=== PATIENT | male | born 1970 | race Caucasian/White ===

== ENCOUNTER 2017-09-08 21:05 | Emergency (ER) | payer MEDICAID, SELFPAY ==
[2017-09-08 21:06] VITALS: BP 148/100; PULSE 111; RESP 16; TEMP 36.2; O2SAT 96; BMI 43.8
[2017-09-08] MEDS: Loperamide 2 MG Capsule 4 MG PO (22:08)
[2017-09-08] MEDS: 0.9% Normal Saline 1,000 ML 1000 ML IV (22:09)
[2017-09-08] MEDS: Ondansetron 4 MG/2 ML Vial IV (22:09)
[2017-09-08 22:10] LABS: Anion Gap 8 (5-15); BUN 11 mg/dL (7-18); BUN/Creat Ratio 9.7 RATIO (10-20); Calcium,Total 8.8 mg/dL (8.5-10.1); Chloride 104 mmol/L (98-107); Creatinine, Serum 1.13 mg/dL (0.70-1.30); EST Glomerular Filtration Rate 74 mL/min (>60); Est Glom Filt Rate - Afr Amer 90 mL/min (>60); Estimated Creatinine Clearance 101.35 ml/min; Glucose 128 mg/dL (74-106); Sodium Level 139 mmol/L (136-145)
--- NOTE | 2017-09-08 22:30 | ED.VISSUMM ---
- ER Visit Summary Date of Service: 09/08/17 Chief Complaint: Nausea and diarrhea History of Present Illness: The patient is a 46 M who has been ill since yesterday. He had severe watery diarrhea yesterday. He states like he felt he was going every 10 minutes. This is actually improved today. He is still having diarrhea but less severe. Today he also developed nausea and chills and sweats. He states he generally did not feel well. Therefore he presented here for evaluation. He has actually had no vomiting. He denies any abdominal pain. He has had some mild congestion and minimal cough. No chest pain or shortness of breath. No fevers. Physical Examination: Heart rate 111 vitals otherwise unremarkable Moist mucous membranes Heart regular rhythm tachycardia Lungs are clear Abdomen soft nontender nondistended Alert Test Results: BMP unremarkable. Emergency Department Course and Treatment: Patient was treated with IV fluids and given Zofran for nausea and Imodium for diarrhea. On reevaluation does report symptomatic improvement and states he feels pretty good. I do believe this is likely related to a viral syndrome. He was instructed on supportive care. He understands to return for new or worsening symptoms and was instructed on specific signs and symptoms to monitor for. He will follow-up with his primary care physician as needed. Patient discharged. Treatment Plan: [] Disposition: Discharge Impression: Diarrhea Viral syndrome This note was generated with [employer] dictation software. It may contain incorrect words, spelling, and punctuation that were not noted in review of the chart prior to signing ED Disposition - Plan for ED Patient: Chief Complaint: Nausea/Vomiting/Diarrhea Referrals: Alka Hull NP-C [Primary Care Provider] -
--- NOTE | 2017-09-08 22:32 | ED.DEP ---
ED Disposition - Plan for ED Patient: Chief Complaint: Nausea/Vomiting/Diarrhea Instructions: ED Gastroenteritis Viral Referrals: Alka Hull, FINANCE PROFESSOR-C [Primary Care Provider] -
--- NOTE | 2017-09-08 22:33 | DCINST.ED_ITS ---
ED Disposition - Plan for ED Patient: Chief Complaint: Nausea/Vomiting/Diarrhea Instructions: ED Gastroenteritis Viral Referrals: Alka Hull, OPTIC FIBRE DRAWER-C [Primary Care Provider] -
[2017-09-08 22:40] VITALS: BP 134/88
== END 2017-09-08 22:44 | disposition home or self-care (01) ==
LOC: ED 22:04
PROVIDERS: Emergency Provider Emergency Medicine; Family Provider Nurse Practitioner Family; PCP Nurse Practitioner Family
DX: B34.9 Viral infection, unspecified (principal); R19.7 Diarrhea, unspecified; E66.9 Obesity, unspecified; K21.9 Gastro-esophageal reflux disease without esophagitis; I10 Essential (primary) hypertension; Z72.0 Tobacco use; Z79.899 Other long term (current) drug therapy
CPT/HCPCS: 80048; 96361; 96374; 99284; J7030; A4216; J2405

== ENCOUNTER 2017-09-28 12:56 | Emergency (ER) | payer MEDICAID, SELFPAY ==
[2017-09-28 12:56] VITALS: BP 157/79; PULSE 95; RESP 20; TEMP 36.9; O2SAT 96; BMI 43.0
[2017-09-28] MEDS: DiphenhydrAMINE 50 MG/ML Syringe 25 MG IV (14:19)
[2017-09-28] MEDS: proCHLORPERazine 10 MG/2 ML Vial IV (14:19)
--- NOTE | 2017-09-28 14:26 | ED.DCSUM_ITS ---
- ER Visit Summary Date of Service: 09/28/17 Chief Complaint: Headache History of Present Illness: The patient is a 47 M presenting with headache gradual onset since yesterday. He states he tried Tylenol at home with minimal relief. He denies any trauma. He complains of right-sided headache associated with photophobia. Denies nausea or vomiting. Denies fever. Denies neck pain. He states he has a history of previous similar headaches. Physical Examination: Vitals are stable. Patient is afebrile. Alert no acute distress. HEENT exam is unremarkable. Neck is supple. No meningismus Lungs are clear and equal bilaterally. Heart is regular rate and rhythm. Abdomen is soft nontender nondistended. Extremities are unremarkable. Skin is warm and dry. No focal neurologic deficit. Remainder of exam is unremarkable. Emergency Department Course and Treatment: Patient was given Compazine, Benadryl with improvement. He is resting comfortably in the emergency department. Advised to follow-up with primary care physician. Advised return to ED for worsening complaints. Disposition: Discharge home Impression: Headache This note was generated with [employer] dictation software. It may contain incorrect words, spelling, and punctuation that were not noted in review of the chart prior to signing ED Disposition - Plan for ED Patient: Chief Complaint: Headache Referrals: Alka Hull NP-C [Primary Care Provider] -
--- NOTE | 2017-09-28 14:51 | ED.DEP ---
ED Disposition - Plan for ED Patient: Chief Complaint: Headache Instructions: ED Cephalgia Unspecified Referrals: Alka Hull, NORI-C [Primary Care Provider] -
[2017-09-28 15:12] VITALS: BP 148/89; PULSE 79; RESP 18; O2SAT 96
== END 2017-09-28 15:17 | disposition home or self-care (01) ==
LOC: ED 13:46
PROVIDERS: Emergency Provider Emergency Medicine; Family Provider Nurse Practitioner Family; PCP Nurse Practitioner Family
DX: R51 Headache (principal); K21.9 Gastro-esophageal reflux disease without esophagitis; I10 Essential (primary) hypertension; Z79.899 Other long term (current) drug therapy
CPT/HCPCS: 96374; 96375; 99283; A4216

== ENCOUNTER 2018-02-22 10:50 | Emergency (ER) | payer MEDICAID, SELFPAY ==
[2018-02-22 10:52] VITALS: BP 166/100; PULSE 90; RESP 17; TEMP 37.1; O2SAT 96; BMI 43.3
--- NOTE | 2018-02-22 11:13 | ED.DCSUM_ITS ---
- ER Visit Summary Date of Service: 02/22/18 Chief Complaint: [Cough and congestion] History of Present Illness: The patient is a 47 M [presents the emergency department complaint cough congestion ?3 days. Patient states that he is coughing up some yellow to brown's sputum. Patient denies fever. He denies chills or sweats. Patient also has a sore throat. Patient states that today he woke up in both eyes were matted and he had drainage. Patient denies sick contacts.] Physical Examination: [HEENT-PERRLA, EOMI. Cranial nerves II through XII grossly intact. TMs clear. Mucous membranes moist. No adenopathy. Cardiovascular-regular rate and rhythm without murmur or ectopy Lungs-good aeration bilaterally with some faint expiratory wheezes noted bilaterally. No accessory muscle use or retractions. Abdomen-normoactive bowel sounds, soft, nontender, no rebound or rigidity, no peritoneal signs. Extremities-intact ?4, normal range of motion, normal pulses, atraumatic] Test Results: [None indicated] Emergency Department Course and Treatment: [Patient was dispensed an albuterol MDI and was started on doxycycline and prednisone. Patient also dispensed gentamicin ophthalmic drops] Treatment Plan: [Doxycycline and prednisone as well as albuterol for wheezing.] Disposition: [Discharged home in stable condition]. Patient advised to [facility] with [facility] within next 3-5 days. Patient to return if increasing shortness of breath or condition should worsen in any way. Impression: [Asthmatic bronchitis Conjunctivitis] This note was generated with [employer] dictation software. It may contain incorrect words, spelling, and punctuation that were not noted in review of the chart prior to signing ED Disposition - Plan for ED Patient: Chief Complaint: Cold Sx Referrals: Alka Hull NP-C [Primary Care Provider] -
--- NOTE | 2018-02-22 11:15 | DCINST.ED_ITS ---
ED Disposition - Plan for ED Patient: Chief Complaint: Cold Sx Instructions: ED Bronchitis Asthmatic Prescriptions: Doxycycline Monohydrate 100 mg PO BID #20 cap Prednisone [Deltasone] 20 mg PO BID #6 tab Referrals: Alka Hull PHLEBOTOMY TECHNOLOGIST-C [Primary Care Provider] - 5-7 Days
[2018-02-22] MEDS: Gentamicin Sulfate 1 OPTH.BTL 2 DRP EACH EYE (11:22)
[2018-02-22] MEDS: predniSONE 20 MG Tablet 40 MG PO (11:23)
[2018-02-22] MEDS: Doxycycline 100 MG CAPSULE PO (11:23)
== END 2018-02-22 11:26 | disposition home or self-care (01) ==
PROVIDERS: Emergency Provider Emergency Medicine; Family Provider Nurse Practitioner Family; PCP Nurse Practitioner Family
DX: J45.909 Unspecified asthma, uncomplicated (principal); H10.9 Unspecified conjunctivitis; I10 Essential (primary) hypertension; K21.9 Gastro-esophageal reflux disease without esophagitis; Z79.899 Other long term (current) drug therapy
CPT/HCPCS: 99282

== ENCOUNTER 2018-04-14 17:16 | Emergency (ER) | payer MEDICAID, SELFPAY ==
[2018-04-14 17:17] VITALS: BP 168/99; PULSE 84; RESP 16; TEMP 36.6; O2SAT 96; BMI 43.0
--- NOTE | 2018-04-14 17:25 | RAD_ITS ---
STUDY: X-RAY CHEST REASON FOR EXAM: Male, 47 years old. Cough and congestion x3 days TECHNIQUE: PA and lateral views of the chest. COMPARISON: 10/08/2016 FINDINGS: Lungs are expanded, right lung is clear. Left lung shows perihilar opacification containing air bronchograms suggesting perihilar infiltrate. No demonstrated effusion. Normal size heart. Normal mediastinum and kennedy. Normal visualized pulmonary arteries. Normal visualized aortic arch and descending thoracic aorta. Normal visualized thoracic spine. Normal visualized ribs, clavicles, and shoulders. There is no demonstrated abnormality of the visualized soft tissue structures of the upper abdomen. RAD/Chest PA and Lateral IMPRESSION: Left perihilar infiltrate without effusion. Follow-up recommended to assure resolution Electronically Signed: Marco Chappell MD at 18:11 EDT , Service support ,
[2018-04-14 19:29] LABS: Absolute Lymphocyte Count 2.05 X10^3/ul (0.83-4.51); Absolute Neutrophil Count 5.2 X10^3/uL (2.0-7.7); Basophil# 0.03 X10^3/uL; Basophil% 0.4 % (0-1); Eosinophil# 0.25 X10^3/uL; Hematocrit 44.4 % (40-54); Hemoglobin 14.9 g/dl (13.0-16.5); Lymphocyte # 2.05 X10^3/ul (4.0); Lymphocyte % 24.6 % (19-41); Mean Corp Hgb Conc 33.6 g/gl (32-36); Mean Corpuscular Volume 86.4 fL (80-94); Monocyte# 0.75 X10^3/uL; Neutrophil # 5.23 X10^3/uL (2.7-7.7); Neutrophil % 62.8 % (47-70); Platelet Count 231 K/mm3 (150-450); RBC Distribution Width CV 12.9 % (11.6-14.6); RBC Distribution Width SD 40.9 fl (35.1-43.9); Red Blood Count 5.14 M/mm3 (4.6-6.2); White Blood Count 8.3 K/mm3 (4.4-11.0)
[2018-04-14 19:30] VITALS: BP 181/109; PULSE 79; RESP 18; O2SAT 97; O2SAT 98
[2018-04-14 19:31] LABS: POSITIVE COUNT NO; POSITIVE DIFFERENTIAL NO; POSITIVE MORPHOLOGY NO
[2018-04-14 19:49] LABS: Anion Gap 6 (5-15); BUN 11 mg/dL (7-18); BUN/Creat Ratio 12.9 RATIO (10-20); Calcium,Total 8.8 mg/dL (8.5-10.1); Chloride 106 mmol/L (98-107); Creatinine, Serum 0.86 mg/dL (0.70-1.30); EST Glomerular Filtration Rate 102 mL/min (>60); Est Glom Filt Rate - Afr Amer 124 mL/min (>60); Estimated Creatinine Clearance 131.77 ml/min; Glucose 95 mg/dL (74-106); Potassium 4.1 mmol/L (3.5-5.1); Sodium Level 142 mmol/L (136-145)
[2018-04-14 21:02] VITALS: PULSE 84; RESP 18; O2SAT 95
[2018-04-14 22:23] VITALS: O2SAT 97
--- NOTE | 2018-04-14 22:51 | ED.DEP ---
ED Disposition - Plan for ED Patient: Chief Complaint: Cough Instructions: ED Pneumonia Adult Prescriptions: Doxycycline Monohydrate 100 mg PO BID #14 capsule Referrals: Ana Mcrae [Primary Care Provider] -
[2018-04-14] MEDS: Doxycycline 100 MG CAPSULE PO (22:58)
[2018-04-14 22:59] VITALS: BP 158/68; PULSE 85; RESP 16; O2SAT 94
--- NOTE | 2018-04-14 22:59 | ED.VISSUMM ---
- ER Visit Summary Date of Service: 04/14/18 Chief Complaint: Cough, congestion History of Present Illness: The patient is a 47 M presents with cough, congestion. He states this has been ongoing for the past 3 days. The cough is nonproductive. He tried Mucinex at home with no improvement. He denies fever. He denies chest pain or shortness of breath. He is not a smoker. Physical Examination: Vitals are stable. Patient is afebrile. Alert no acute distress. HEENT exam is unremarkable. Neck is supple. Lungs are clear and equal bilaterally. Heart is regular rate and rhythm. Abdomen is soft nontender nondistended. Extremities are unremarkable. Skin is warm and dry. No focal neurologic deficit. Remainder of exam is unremarkable. Emergency Department Course and Treatment: CBC, chemistries unremarkable. Chest x-ray shows left perihilar infiltrate. He was given doxycycline p.o. and prescription. He remains hemodynamically stable. Pulse ox is 97% with ambulation. He will follow-up with his primary care physician. He is advised return to ED for new or worsening complaints. Disposition: Discharge home Impression: Community acquired pneumonia This note was generated with [employer] dictation software. It may contain incorrect words, spelling, and punctuation that were not noted in review of the chart prior to signing ED Disposition - Plan for ED Patient: Chief Complaint: Cough Instructions: ED Pneumonia Adult Prescriptions: Doxycycline Monohydrate 100 mg PO BID #14 capsule Referrals: [facility] Vreo,Ana Rodrigues [Primary Care Provider] -
--- NOTE | 2018-04-14 23:02 | ED.DCSUM_ITS ---
- ER Visit Summary Date of Service: 04/14/18 Chief Complaint: Cough, congestion History of Present Illness: The patient is a 47 M presents with cough, congestion. He states this has been ongoing for the past 3 days. The cough is nonproductive. He tried Mucinex at home with no improvement. He denies fever. He denies chest pain or shortness of breath. He is not a smoker. Physical Examination: Vitals are stable. Patient is afebrile. Alert no acute distress. HEENT exam is unremarkable. Neck is supple. Lungs are clear and equal bilaterally. Heart is regular rate and rhythm. Abdomen is soft nontender nondistended. Extremities are unremarkable. Skin is warm and dry. No focal neurologic deficit. Remainder of exam is unremarkable. Emergency Department Course and Treatment: CBC, chemistries unremarkable. Chest x-ray shows left perihilar infiltrate. He was given doxycycline p.o. and prescription. He remains hemodynamically stable. Pulse ox is 97% with ambulation. He will follow-up with his primary care physician. He is advised return to ED for new or worsening complaints. Disposition: Discharge home Impression: Community acquired pneumonia This note was generated with [employer] dictation software. It may contain incorrect words, spelling, and punctuation that were not noted in review of the chart prior to signing ED Disposition - Plan for ED Patient: Chief Complaint: Cough Instructions: ED Pneumonia Adult Prescriptions: Doxycycline Monohydrate 100 mg PO BID #14 capsule Referrals: [facility] Vero,Ana Rodrigues [Primary Care Provider] -
== END 2018-04-14 23:08 | disposition home or self-care (01) ==
LOC: ED 20:13
PROVIDERS: Emergency Provider Emergency Medicine
DX: J18.9 Pneumonia, unspecified organism (principal)
CPT/HCPCS: 71046; 80048; 85025; 99285; A4216

== ENCOUNTER → 2018-11-04 | Outpatient (CLI) | payer MEDICAID, SELFPAY ==
[2018-11-04 13:44] VITALS: BMI 43.9
--- NOTE | 2018-11-04 13:52 | RAD_ITS ---
STUDY: X-RAY - RIGHT KNEE REASON FOR EXAM: Chronic pain. TECHNIQUE: 4 view(s) of the knee. COMPARISON: Radiographs 04/16/2017. FINDINGS: Normal visualized distal femur. Normal visualized proximal tibia and fibula. Normal proximal tibiofibular articulation. Normal medial femorotibial compartment. Normal lateral femorotibial compartment. Normal patellofemoral articulation. The soft tissue structures are unremarkable. RAD/Knee 4 or More Views IMPRESSION: Normal x-ray examination of the right knee. Electronically Signed: Danial Hood MD at 13:38 EDT Tel , Service support ,
--- NOTE | 2018-11-04 13:52 | RAD_ITS ---
STUDY: X-RAY - LEFT KNEE REASON FOR EXAM: Chronic pain. TECHNIQUE: 4 view(s) of the knee. COMPARISON: None. FINDINGS: Normal visualized distal femur. Normal visualized proximal tibia and fibula. Normal proximal tibiofibular articulation. Normal medial femorotibial compartment. Normal lateral femorotibial compartment. Normal patellofemoral articulation. The soft tissue structures are unremarkable. RAD/Knee 4 or More Views IMPRESSION: Normal x-ray examination of the left knee. Electronically Signed: Danial Hood MD at 13:40 EDT Tel , Service support ,
== END | disposition home or self-care (01) ==
PROVIDERS: Referring Provider Orthopaedic Surgery; Visit Provider Orthopaedic Surgery
DX: M25.562 Pain in left knee (principal); M25.561 Pain in right knee
CPT/HCPCS: 73564

== ENCOUNTER 2018-12-20 21:20 | Emergency (ER) | payer MEDICAID, SELFPAY ==
[2018-11-04 13:44] VITALS: BMI 43.9
[2018-12-20 21:21] VITALS: BP 150/107; PULSE 90; RESP 18; TEMP 36.3; O2SAT 96; BMI 46.1
--- NOTE | 2018-12-20 21:38 | ED.VISSUMM ---
- ER Visit Summary Date of Service: 12/20/18 Chief Complaint: Left knee pain History of Present Illness: The patient is a [address] Keller and the [facility]. He reports that he has chronic left knee pain. He is in the process of getting fitted for a brace for this. States that yesterday he was walking around on uneven ground and tweaked his knee. He denied any fall. No MVA. States is a sharp pain is 10-10 at worst and 7-10 currently. Is worsened by walking and relieved by rest. He is also taken naproxen. Physical Examination: Vitals: Stable. Afebrile. General: Well-nourished and well-developed. Head: Normocephalic atraumatic. Neck: Supple, no lymphadenopathy. No JVD. Nontender. Cardiovascular: Regular rate and rhythm. No murmurs. Respiratory: No respiratory distress. Clear to auscultation bilaterally. Abdominal: Soft, nontender, nondistended, normal bowel sounds. No guarding, rebound, or peritoneal signs. Back: Nontender. Extremities: Left knee: Mild tenderness palpation to the proximal tibia. No pain or ligamentous instability with anterior/posterior drawer or medial/lateral stress. No overlying erythema or warmth to suggest a septic joint. No effusion. Skin: Normal color, no rash. Neurologic: Alert and oriented ?3. Cranial nerves II through XII are intact. Normal strength and sensation. Psych: Normal affect. Emergency Department Course and Treatment: I had a prolonged discussion with patient about treatment options. At this time he does not want to have therapeutic arthrocentesis performed. He also reports that he is recovering addict and does not want any opiate-based medications. His last naproxen was approximately 8 hours ago. He was given a dose of Tylenol. Treatment Plan: Patient refused crutches. Instructed use Tylenol and Aleve for pain. Follow-up Dr. Keller in 1 week if not improving. Return to the emergency department for any worsening symptoms. Disposition: To home in improved and stable condition. Impression: 1. Left knee pain, acute on chronic. This note was generated with [employer] software. It may contain incorrect words, spelling, and punctuation that were not noted in review of the chart prior to signing ED Disposition - Plan for ED Patient: Disposition: Home or Assisted Living Instructions: ED Knee Pain [facility] Referrals: [facility],Ana Rodrigues [Primary Care Provider] - Ellyn Keller DO [STAFF PHYSICIAN] - 1 Week if not improving
[2018-12-20] MEDS: Acetaminophen 325 MG Tablet 1000 MG PO (21:52)
[2018-12-20 21:53] VITALS: RESP 20
== END 2018-12-20 21:53 | disposition home or self-care (01) ==
LOC: ED 21:40
PROVIDERS: Emergency Provider Emergency Medicine
DX: M25.562 Pain in left knee (principal); G89.29 Other chronic pain; K21.9 Gastro-esophageal reflux disease without esophagitis; I10 Essential (primary) hypertension
CPT/HCPCS: 99283

== ENCOUNTER → 2019-09-14 14:03 | Outpatient (CLI) | payer MEDICAID, SELFPAY ==
--- NOTE | 2019-09-14 14:07 | US_ITS ---
STUDY: SCROTUM ULTRASOUND REASON FOR EXAM: Male, 49 years old. Testicular pain and swelling TECHNIQUE: Ultrasound evaluation of the scrotum was performed with color Doppler and static granados-scale imaging. COMPARISON: None. FINDINGS: RIGHT TESTICLE INTRATESTICULAR: There is a normal size of the right testicle. The right testicle measures 4.8 x 2.8 x 2.5 cm. There is a homogenous echotexture. There is normal arterial and normal venous vascularity. There is no demonstrated right testicular mass or cyst. EXTRATESTICULAR: The epididymis is normal in size. The epididymis head measures 1.1 x 1.1 cm. There is normal vascularity of the epididymis. There is no demonstrated epididymal cystic structure. There is no demonstrated hydrocele. There are prominent extratesticular veins consistent with a varicocele. There is no demonstrated extratesticular mass or cyst. LEFT TESTICLE INTRATESTICULAR: There is a normal size of the left testicle. The left testicle measures 4.2 x 2.9 x 2.4 cm. There is a homogenous echotexture. There is normal arterial and normal venous vascularity. There is a 0.4 x 0.4 cm cyst in the left testicle. The left testicle is otherwise within normal limits. EXTRATESTICULAR: The epididymis is normal in size. The epididymis head measures 1.2 x 1.0 cm. There is normal vascularity of the epididymis. There is no demonstrated epididymal cystic structure. There is a small hydrocele. There are prominent extratesticular veins consistent with a varicocele. There is no demonstrated extratesticular mass or cyst. US/Testicular with Arterial Flow IMPRESSION: 4 mm cyst in the left testicle. Otherwise, normal bilateral testicles with normal Doppler flow. Bilateral varicoceles. Small left hydrocele. Electronically Signed: Jono Beck, at 15:13 EST Tel , Service support ,
== END ==
PROVIDERS: Referring Provider Nurse Practitioner Family; Visit Provider Nurse Practitioner Family
DX: N50.82 Scrotal pain (principal)
CPT/HCPCS: 76870; 93976

== ENCOUNTER 2020-03-13 11:53 | Emergency (ER) | payer MEDICAID, SELFPAY ==
[2020-03-13 11:54] VITALS: BP 160/114; PULSE 83; RESP 16; TEMP 36.2; O2SAT 97; BMI 45.9
--- NOTE | 2020-03-13 12:19 | EKG12_ITS ---
Test Reason : CP Blood Pressure : / mmHG Vent. Rate : 080 BPM Atrial Rate : 080 BPM P-R Int : 154 ms QRS Dur : 084 ms QT Int : 380 ms P-R-T Axes : 014 -04 041 degrees QTc Int : 438 ms Normal sinus rhythm Normal ECG Confirmed by NADINE CHI ([id number]), fan mail editor LUPE BOATENG ([id number]) on 03/20/2020 1:17:30 PM Referred By: ASHA Confirmed By:NADINE CHI
[2020-03-13 12:43] LABS: Absolute Lymphocyte Count 2.07 X10^3/uL (0.83-4.51); Basophil# 0.06 X10^3/uL; Basophil% 0.7 % (0-1); Eosinophil# 0.28 X10^3/uL; Eosinophils% 3.5 % (0-5); Hematocrit 46.6 % (40-54); Hemoglobin 15.7 g/dL (13.0-16.5); Lymphocyte # 2.07 X10^3/ul (4.0); Lymphocyte % 25.6 % (19-41); Mean Corp Hgb Conc 33.7 g/dL (32-36); Mean Corpuscular Volume 86.1 fL (80-94); Mean Platelet Vol. 10.3 fl (6.2-12.0); Monocyte# 0.63 X10^3/uL; Monocyte% 7.8 % (0-10); NRBC Flagged by Analyzer 0 % (0-5); Neutrophil # 5.03 X10^3/uL (2.7-7.7); Neutrophil % 62.2 % (47-70); Platelet Count 284 K/mm3 (150-450); RBC Distribution Width CV 12.6 % (11.6-14.6); RBC Distribution Width SD 39.1 fl (35.1-43.9); Red Blood Count 5.41 M/mm3 (4.6-6.2); White Blood Count 8.1 K/mm3 (4.4-11.0)
--- NOTE | 2020-03-13 12:50 | RAD_ITS ---
STUDY: X-RAY CHEST REASON FOR EXAM: Male, 49 years old. CP with sneezing or deep breath TECHNIQUE: Single AP portable view of the chest. COMPARISON: None. FINDINGS: The lungs are clear and expanded. There is no demonstrated pleural abnormality. Normal size heart. Normal mediastinum and kennedy. Normal visualized pulmonary arteries. Normal visualized aortic arch and descending thoracic aorta. Normal visualized thoracic spine. Normal visualized ribs, clavicles, and shoulders. There is no demonstrated abnormality of the visualized soft tissue structures of the upper abdomen. RAD/Chest 1 View (Portable) IMPRESSION: Normal x-ray examination of the chest. Electronically Signed: Sara Wolf, at 13:22 EDT Tel , Service support ,
[2020-03-13 12:53] LABS: Anion Gap 2 (5-15); BUN 14 mg/dL (7-18); BUN/Creat Ratio 15.7 RATIO (10-20); Calcium,Total 9.3 mg/dL (8.5-10.1); Chloride 107 mmol/L (98-107); Creatinine, Serum 0.89 mg/dL (0.70-1.30); EST Glomerular Filtration Rate 96 mL/min (>60); Est Glom Filt Rate - Afr Amer 117 mL/min (>60); Estimated Creatinine Clearance 118.01 ml/min; Glucose 103 mg/dL (74-106); Potassium 3.9 mmol/L (3.5-5.1); Sodium Level 139 mmol/L (136-145)
[2020-03-13] MEDS: 0.9% Normal Saline 1,000 ML 150 ML IV (12:53)
[2020-03-13] MEDS: Aspirin 81 MG TAB.CHEW 324 MG PO (12:53)
[2020-03-13 13:14] LABS: D-Dimer Quantitative (DVT/PE) <= 0.27 FEU/ug/m (0.27-0.49)
[2020-03-13 13:19] VITALS: BP 151/112
--- NOTE | 2020-03-13 14:12 | ED.DCSUM_ITS ---
- ER Visit Summary Date of Service: 03/13/20 Chief Complaint: [Chest pain and high blood pressure] History of Present Illness: The patient is a 49 M [resents to the emergency department with symptoms for 2 days. Patient is noted a sharp stabbing pain in his left chest especially with yawning or sneezing or deep breath. Patient denies feeling short of breath. Has had no fever or cough. He was at his primary care physician's office and was referred to the ER given his complaints. Patient has not had any recent travel or surgery. Patient does have history of hypertension and was noted in the office today to have systolics in the 170s with diastolics in the low 100s. Patient is on blood pressure medication which he states that he has been compliant with and that today's blood pressure was higher than normal.] Physical Examination: [HEENT-PERRLA, EOMI. Cranial nerves II through XII grossly intact. TMs clear. Mucous membranes moist. No adenopathy. Cardiovascular-regular rate and rhythm without murmur or ectopy Lungs-clear to auscultation, chest wall stable without crepitus or subcu emphysema Abdomen-normoactive bowel sounds, soft, nontender, no rebound or rigidity, no peritoneal signs. Extremities-intact ?4, normal range of motion, normal pulses, atraumatic] Test Results: [EKG obtained on arrival shows sinus rhythm with a ventricular rate of 80 bpm with no acute ST segment changes. CBC with differential is normal. Chemistries unremarkable. Troponin was less than 0.015. D-dimer was less than 0.27. Chest x-ray showed nothing acute.] Emergency Department Course and Treatment: [Patient had an IV line established on arrival. Patient placed on lens matcher. Patient was given aspirin.] Treatment Plan: [Patient has atypical chest pain and I have low suspicion for cardiac etiology. Patient heart score is 2. Recommended anti-inflammatory for discomfort. Patient to follow-up with his primary care physician in 3 to 5 days. Patient advised to return if worsening pain, increasing shortness of breath, exertional dyspnea, or condition should worsen anyway.] Disposition: [Discharged home in stable condition] Impression: [Chest pain-atypical] This note was generated with [employer] software. It may contain incorrect words, spelling, and punctuation that were not noted in review of the chart prior to signing ED Disposition - Plan for ED Patient: Referrals: Raul Pham,Ana Rodrigues [Primary Care Provider] -
--- NOTE | 2020-03-13 14:15 | ED.DEP ---
ED Disposition - Plan for ED Patient: Instructions: ED Hypertension Established, ED Chest Pain Atypical Unkn Cause Referrals: Ana Mcrae [Primary Care Provider] - 3-5 Days
[2020-03-13 14:40] VITALS: BP 148/100; PULSE 78; RESP 16; O2SAT 98
== END 2020-03-13 14:42 | disposition home or self-care (01) ==
LOC: ED 12:42
PROVIDERS: Emergency Provider Emergency Medicine
DX: R07.9 Chest pain, unspecified (principal); I10 Essential (primary) hypertension
CPT/HCPCS: 71045; 80048; 84484; 85025; 85379; 93005; 96360; 96361; 99285; J7030; A4216

== ENCOUNTER 2020-04-04 19:10 | Emergency (ER) | payer MEDICAID, SELFPAY ==
[2020-04-04 19:11] VITALS: BP 183/99; PULSE 90; RESP 18; TEMP 36.1; O2SAT 97; BMI 45.1
--- NOTE | 2020-04-04 19:27 | CT_ITS ---
STUDY: CT BRAIN WITHOUT CONTRAST REASON FOR EXAM: Male, 49 years old. C/O HTN AND FLYNN RADIATION DOSAGE (If Supplied By Facility): CTDIvol = ( 44.99 ) mGy, DLP = ( 829.85 ) mGycm TECHNIQUE: Transaxial CT imaging of the brain was performed without administration of intravenous contrast material. Individualized dose optimization techniques were used for this CT. COMPARISON: No relevant priors. FINDINGS: Normal soft tissue structures. Normal calvarium. Normal size ventricles and extra-axial spaces for the patient''s age. Normal white matter tracts of the cerebral hemispheres. Normal basal ganglia and thalami. Normal brainstem. Normal cerebellum. There is no intracranial hemorrhage. There are no findings of an acute ischemic infarction. Normal visualized paranasal sinuses. Chronic nasal fractures. Remote healed fracture of the medial wall right orbit. CT/Brain/Head without Contrast IMPRESSION: 1. No acute findings. 2. Remote healed facial fractures. Electronically Signed: Ebony Watkins MD at 20:45 EDT Tel , Service support ,
--- NOTE | 2020-04-04 19:27 | EKG12_ITS ---
Test Reason : HTN Blood Pressure : / mmHG Vent. Rate : 086 BPM Atrial Rate : 086 BPM P-R Int : 154 ms QRS Dur : 080 ms QT Int : 348 ms P-R-T Axes : 021 003 044 degrees QTc Int : 416 ms Normal sinus rhythm Normal ECG Confirmed by JIMENA CALDERON, DENNY ([id number]), editor continuity and script NACHO WYATT ([id number]) on 04/09/2020 12:53:28 PM Referred By: PALOMA Confirmed By:DENNY HESS MD
--- NOTE | 2020-04-04 19:27 | ED.DCSUM_ITS ---
- ER Visit Summary Date of Service: 04/04/20 Chief Complaint: [High blood pressure] History of Present Illness: The patient is a 49 M [presents to the emergency department with elevated blood pressure over the last 2 weeks. Patient states that he had a headache this morning and felt fatigued. He checked his blood pressure around 4 PM and it was 168/105. Patient states that his primary care physician is currently working on managing his blood pressure and adjusting his medications. Currently he is on hydrochlorothiazide 25 mg daily as well as losartan 100 mg daily. Patient rates his headache currently is a 7 out of 10. He denies any photophobia. He has had no nausea or vomiting. He denies any chest pain or shortness of breath. Patient denies any abdominal pain. Patient denies any falls or head injuries.] Physical Examination: [HEENT-PERRLA, EOMI. Cranial nerves II through XII grossly intact. TMs clear. Mucous membranes moist. No adenopathy. Cardiovascular-regular rate and rhythm without murmur or ectopy Lungs-clear to auscultation, chest wall stable without crepitus or subcu emphysema Abdomen-normoactive bowel sounds, soft, nontender, no rebound or rigidity, no peritoneal signs. Extremities-intact ?4, normal range of motion, normal pulses, atraumatic] Test Results: [EKG obtained on arrival showed a sinus rhythm with a rate of 86 bpm with no acute segment changes. CBC with differential again of 8.8 chemistries unremarkable. Troponin less than 0.15. CT scan of the brain without contrast was unremarkable.] Emergency Department Course and Treatment: [Patient placed on groundwater monitoring technician on arrival.] Treatment Plan: [This point patient's blood pressure is 150s over 90s and I do not feel he needs any further acute intervention. He is advised to follow-up wi th his primary care physician to continue to monitor and treat his blood pressure. Patient advised to return if severe headache, chest pain, shortness of breath, or condition should worsen anyway. Patient will discontinue his co- Q10 supplements that he has been taking since these issues of started to see if it makes a difference in his blood pressure.] Disposition: [Discharged home in stable condition] Impression: [Hypertension-established] This note was generated with [employer] software. It may contain incorrect words, spelling, and punctuation that were not noted in review of the chart prior to signing ED Disposition - Plan for ED Patient: Referrals: [facility] [NON-STAFF] -
[2020-04-04 19:28] VITALS: BP 175/113; PULSE 78; RESP 18; O2SAT 96
[2020-04-04 20:00] LABS: Absolute Lymphocyte Count 2.09 X10^3/uL (0.83-4.51); Absolute Neutrophil Count 5.5 X10^3/uL (2.0-7.7); Basophil# 0.05 X10^3/uL; Basophil% 0.6 % (0-1); Eosinophils% 2.3 % (0-5); Hematocrit 44.8 % (40-54); Hemoglobin 15.2 g/dL (13.0-16.5); Lymphocyte # 2.09 X10^3/ul (4.0); Lymphocyte % 23.9 % (19-41); Mean Corp Hgb Conc 33.9 g/dL (32-36); Mean Corpuscular Hgb 29.1 pg (27.0-32.0); Mean Corpuscular Volume 85.8 fL (80-94); Mean Platelet Vol. 10.3 fl (6.2-12.0); Monocyte# 0.92 X10^3/uL; Monocyte% 10.5 % (0-10); NRBC Flagged by Analyzer 0 % (0-5); Neutrophil # 5.46 X10^3/uL (2.7-7.7); Neutrophil % 62.4 % (47-70); Platelet Count 267 K/mm3 (150-450); RBC Distribution Width CV 12.6 % (11.6-14.6); Red Blood Count 5.22 M/mm3 (4.6-6.2); White Blood Count 8.8 K/mm3 (4.4-11.0)
[2020-04-04 20:08] VITALS: BP 158/97; PULSE 85; RESP 16; O2SAT 97
[2020-04-04 20:21] LABS: Anion Gap 4 (5-15); BUN 11 mg/dL (7-18); BUN/Creat Ratio 11.7 RATIO (10-20); Calcium,Total 9.3 mg/dL (8.5-10.1); Chloride 107 mmol/L (98-107); Creatinine, Serum 0.94 mg/dL (0.70-1.30); EST Glomerular Filtration Rate 91 mL/min (>60); Est Glom Filt Rate - Afr Amer 110 mL/min (>60); Estimated Creatinine Clearance 111.74 ml/min; Glucose 104 mg/dL (74-106); Potassium 4.8 mmol/L (3.5-5.1); Sodium Level 142 mmol/L (136-145)
--- NOTE | 2020-04-04 20:29 | DCINST.ED_ITS ---
ED Disposition - Plan for ED Patient: Instructions: ED Hy[facility]
--- NOTE | 2020-04-04 20:29 | ED.DEP ---
ED Disposition - Plan for ED Patient: Instructions: ED Hypertension Established [facility] - [facility]-5 Days
[2020-04-04 20:31] VITALS: BP 158/97; PULSE 85; RESP 20; O2SAT 97
== END 2020-04-04 20:39 | disposition home or self-care (01) ==
LOC: ED 19:59
PROVIDERS: Emergency Provider Emergency Medicine; PCP Nurse Practitioner Family
DX: I10 Essential (primary) hypertension (principal)
CPT/HCPCS: 70450; 80048; 84484; 85025; 93005; 99284; A4216

== ENCOUNTER → 2020-04-17 09:31 | Outpatient (CLI) | payer MEDICAID, SELFPAY ==
[2020-04-04 19:11] VITALS: BMI 45.1
[2020-04-17 10:14] LABS: Absolute Neutrophil Count 4.3 X10^3/uL (2.0-7.7); Basophil# 0.05 X10^3/uL; Basophil% 0.7 % (0-1); Eosinophils% 2.8 % (0-5); Hematocrit 44.5 % (40-54); Hemoglobin 14.8 g/dL (13.0-16.5); Lymphocyte % 26.8 % (19-41); Mean Corp Hgb Conc 33.3 g/dL (32-36); Mean Corpuscular Hgb 28.9 pg (27.0-32.0); Mean Corpuscular Volume 86.9 fL (80-94); Mean Platelet Vol. 10.3 fl (6.2-12.0); Monocyte# 0.65 X10^3/uL; Monocyte% 9.2 % (0-10); NRBC Flagged by Analyzer 0 % (0-5); Neutrophil # 4.25 X10^3/uL (2.7-7.7); Neutrophil % 60.1 % (47-70); Platelet Count 270 K/mm3 (150-450); RBC Distribution Width CV 12.5 % (11.6-14.6); RBC Distribution Width SD 39.7 fl (35.1-43.9); Red Blood Count 5.12 M/mm3 (4.6-6.2); White Blood Count 7.1 K/mm3 (4.4-11.0)
[2020-04-17 10:40] LABS: Vitamin D,25 Hydroxy 27.9 ng/mL
[2020-04-17 10:42] LABS: ALB/GLOB Ratio 1.2 RATIO (0.9-2.4); AST(SGOT) 23 U/L (15-37); Alanine Aminotransfer ALT/SGPT 41 U/L (16-61); Albumin, Serum 4.1 g/dL (3.2-5.0); Alkaline Phosphatase 99 U/L (45-117); Anion Gap 3 (5-15); BUN 14 mg/dL (7-18); BUN/Creat Ratio 15.3 RATIO (10-20); Chloride 105 mmol/L (98-107); Cholesterol 155 mg/dL (200); Creatinine, Serum 0.92 mg/dL (0.70-1.30); EST Glomerular Filtration Rate 94 mL/min (>60); Est Glom Filt Rate - Afr Amer 113 mL/min (>60); Globulin 3.5 g/dL (2.2-4.2); Glucose 108 mg/dL (74-106); High Density Lipoprotein 52 mg/dL; Potassium 4.1 mmol/L (3.5-5.1); Protein, Total 7.6 g/dL (6.4-8.2); Sodium Level 139 mmol/L (136-145); Triglycerides 94 mg/dL; Very Low Density Lipoprotein 19 mg/dL (5-40)
[2020-04-17 11:47] LABS: Prothrombin Time (Protime)PT. 12.4 SECONDS (11.7-14.9)
[2020-04-17 11:48] LABS: Partial Thromboplast Time 30.6 Seconds (24.1-36.2)
== END ==
PROVIDERS: Nurse Practitioner Family; Specialist
DX: I10 Essential (primary) hypertension (principal); R07.9 Chest pain, unspecified
CPT/HCPCS: 36415; 80053; 80061; 82306; 85025; 85610; 85730

== ENCOUNTER 2020-04-25 07:42 | Day surgery (SDC) | payer MEDICAID, SELFPAY ==
[2020-04-17 10:00] VITALS: BMI 46.2
[2020-04-24 12:37] VITALS: BMI 46.2
--- NOTE | 2020-04-25 10:15 | CL.D_ITS ---
Patient Name: ALEX BRISCOE Study Date: 04/25/2020 Performing: Jemal De La Vega MD Ht: 74.01 inches 188 cm : 1970 Wt: 359.35 lbs 163 kg Age: 49 Gender: male BSA: 2.79 PROCEDURE(S) PERFORMED GS94-BXY/COR/LV CLINICAL PROFILE AND INDICATIONS Indications: Worsening Angina Heart Failure: None Stress/Imaging Stress/Image Study Performed: No CAD Presentations: Unstable angina. CONCLUSIONS No significant obstructive CAD. RCA appears to arise from the L coronary cusp. No significant or M R. Preserved EF RECOMMENDATIONS Consider CTA of the coronaries to see if the RCA has a course between the aorta and pulmonary artery DESCRIPTION OF PROCEDURE The patient arrived to the procedure lab. The risks and benefits of the procedure as well as a full d escription of our services here and current unavailability of surgical backup were fully explained to the patient and/or their significant other prior to the catheterization. The Timeout was completed, verifying the correct patient and procedure. The patient's procedural site was prepped and draped in the usual fashion. Local anesthetic was given subcutaneously to right radial region with Lidocaine 2% . Using a modified Seldinger technique, arterial access was obtained via the right radial artery, a 6 Fr sheath was inserted. Left Coronary Artery selective angiography was performed in multiple views u sing a 5 Fr. JL3.5 catheter. Left Ventriculography was performed in MARADIAGA projection using a 5 Fr. JR4. LV to AO pullback pressures were then recorded. Right Coronary Artery selective angiography was then performed in multiple views using a 5 Fr. 4.0 Valmora catheter.The arterial sheath was pulled and a TR Band was applied for hemostasis CORONARY ANGIOGRAPHY DOMINANCE: Right Dominant LEFT HEART ASSESSMENT Left Ventricular Ejection Fraction: by LV Gram 60 % Normal LV wall motion LEFT MAIN: No significant disease noted LEFT ANTERIOR DESCENDING ARTERY: No significant disease noted CIRCUMFLEX ARTERY: No significant disease noted RIGHT CORONARY ARTERY: No significant disease noted. RCA appears to arise from the L coronary cusp VALVE FINDINGS: No Aortic Valve Stenosis No Mitral Insufficiency COMPLICATIONS No Complications PROCEDURE MEDICATIONS Fentanyl 50 mcg IV Versed 1 mg IV Oxygen: 2 L/min via nasal cannula SUMMARY OF HEMODYNAMIC DATA Time AIR REST ECG 08:28:47 ECG 08:58:40 AO 135/109 (125) SA 09:19:08 LV 166/1, 15 09:23:48 LV 166/2, 13 09:23:55 LV 158/0, 13 09:24:35 LVp 160/6, 20 09:24:56 AOp 149/96 (120) 09:25:01 AO 152/99 (123) 09:25:08 Signed By Jemal De La Vega MD On 04/25/2020 10:14:06 AM Jemal De La Vega MD
== END 2020-04-25 11:40 | disposition home or self-care (01) ==
LOC: CLSP 07:43
PROVIDERS: Referring Provider Specialist; Visit Provider Specialist
DX: I20.0 Unstable angina (principal); I10 Essential (primary) hypertension; R06.00 Dyspnea, unspecified; R07.9 Chest pain, unspecified; Z79.899 Other long term (current) drug therapy; Z79.51 Long term (current) use of inhaled steroids; Z87.891 Personal history of nicotine dependence
CPT/HCPCS: 93458; 99152; 99153; J7040; Q9967; C1769; C1894

== ENCOUNTER → 2020-05-04 14:29 | Outpatient (CLI) | payer MEDICAID, SELFPAY ==
[2020-04-24 12:37] VITALS: BMI 46.2
--- NOTE | 2020-05-04 14:32 | CT_ITS ---
STUDY: CT CHEST WITHOUT CONTRAST REASON FOR EXAM: Male, 49 years old. R/O ANOMALOUS CORONARY ARTERY? PLEASE ONLY DO OVER READ OF CHEST STRUCTURES. CARPET MECHANIC TO READ CORONARY ARTERIES RADIATION DOSAGE (If Supplied By Facility): CTDIvol = ( 24.14 ) mGy, DLP = ( 14 ) mGycm TECHNIQUE: Transaxial imaging was performed without the administration of intravenous contrast material. Multiplanar coronal and sagittal images were reformatted. Individualized dose optimization techniques were used for this CT. COMPARISON: None. FINDINGS: 4 x 7 mm noncalcified nodule in the right lower lobe is evident on image 41 of series 3. There is also a 3 x 6 mm subpleural nodule in the lateral left lower lobe on image 31. Tiny 2 mm nodule in the anterior right middle lobe on image 25. 3 mm noncalcified nodule in the lateral left lower lobe on image 44 as well as a 3 x 4 mm noncalcified nodule in the lateral left lower lobe on image 46. There is no demonstrated pleural abnormality. The cardiac structures and coronary arteries evaluated/reported by electric wheelchair repairer. Normal mediastinum. Normal hilar regions. Normal unenhanced pulmonary arteries. Normal aorta arch and descending thoracic aorta. There are multi-level degenerative changes of the thoracic spine. There is no demonstrated abnormality of the visualized upper abdomen. IMPRESSION: Noncalcified nodules measuring up to 4 x 7 mm. Recommend follow-up chest CT in 3-6 months, according to FLEISCHNER Society guidelines. Electronically Signed: Anil Nunez MD (Brooks) at 15:42 EDT , Service support , STUDY: CT CHEST WITHOUT CONTRAST REASON FOR EXAM: Male, 49 years old. R/O ANOMALOUS CORONARY ARTERY? PLEASE ONLY DO OVER READ OF CHEST STRUCTURES. CARPET MECHANIC TO READ CORONARY ARTERIES RADIATION DOSAGE (If Supplied By Facility): CTDIvol = ( 24.14 ) mGy, DLP = ( 1482.08 ) mGycm TECHNIQUE: Transaxial imaging was performed without the administration of intravenous contrast material. Multiplanar coronal and sagittal images were reformatted. Individualized dose optimization techniques were used for this CT. COMPARISON: None. FINDINGS: 4 x 7 mm noncalcified nodule in the right lower lobe is evident on image 41 of series 3. There is also a 3 x 6 mm subpleural nodule in the lateral left lower lobe on image 31. Tiny 2 mm nodule in the anterior right middle lobe on image 25. 3 mm noncalcified nodule in the lateral left lower lobe on image 44 as well as a 3 x 4 mm noncalcified nodule in the lateral left lower lobe on image 46. There is no demonstrated pleural abnormality. The cardiac structures and coronary arteries evaluated/reported by electric wheelchair repairer. Normal mediastinum. Normal hilar regions. Normal unenhanced pulmonary arteries. Normal aorta arch and descending thoracic aorta. There are multi-level degenerative changes of the thoracic spine. There is no demonstrated abnormality of the visualized upper abdomen. CT/Limited Chest CT w/CCTA
[2020-05-04 14:39] VITALS: BP 164/93; PULSE 78; RESP 18; TEMP 36.8; O2SAT 98; BMI 43.9
[2020-05-04 14:59] VITALS: BP 164/93; PULSE 78
[2020-05-04] MEDS: Nitroglycerin SL (ED/IMG/CATH) 0.4 MG TABLET SUBLINGUAL (14:59)
[2020-05-04 15:05] VITALS: BP 148/107; PULSE 83; RESP 14; O2SAT 95
--- NOTE | 2020-05-22 17:40 | CCTA.WCONT ---
CCTA w/Cont Coronary Arteries Date of Study:: 05/04/20 chest pain High-resolution computed tomographic imaging of the chest was performed on 05/04/2020 with particular attention paid to the coronary arteries, images from the examination were analyzed for the presence of extensive coronary artery calcification using the coronary calcification software. The patient was also administered 100 cc of contrast agent gated images were attempted to be obtained. There appeared to be a problem with gating during the acquisition. 0.625 mm reconstruction images were obtained. LEFT MAIN CORONARY ARTERY: Normal left main coronary artery, this originates from the normal left coronary cusp [] LEFT ANTERIOR DESCENDING CORONARY ARTERY: No significant stenosis noted in the left anterior descending artery [] LEFT CIRCUMFLEX CORONARY ARTERY: Evidence of misregistration artifact noted in the left circumflex artery [] RIGHT CORONARY ARTERY: Dominant vessel with no significant stenosis noted CORONARY CALCIUM SCORE: 0 [CT angiogram demonstrating normal origin of the coronary arteries. No definitive obstructive lesions are noted though there is evidence of misregistration artifact as well as computer malfunction. This may diminish the sensitivity for detection of obstructive coronary disease.]
== END ==
PROVIDERS: Referring Provider Specialist; Visit Provider Specialist
DX: R06.00 Dyspnea, unspecified (principal); R07.9 Chest pain, unspecified; I10 Essential (primary) hypertension
CPT/HCPCS: 75571; 75574; 76380; Q9967

== ENCOUNTER → 2020-05-16 13:02 | Outpatient (CLI) | payer MEDICAID, SELFPAY ==
[2020-04-17 10:00] VITALS: BMI 46.2
[2020-05-04 14:39] VITALS: BMI 43.9
--- NOTE | 2020-05-16 13:03 | ECHOCS_ITS ---
Reason For Study: CHEST PAIN, LAZO Procedure This was a 2D Doppler, Color Flow transthoracic echocardiogram. The study was technically difficult. Exam performed in department. Left Ventricle Normal LV size. The estimated ejection fraction is 65 %. No evidence for diastolic dysfunction. No regional wall motion abnormalities noted. Right Ventricle Normal RV size. Normal systolic function. Atria Normal left atrium. Normal right atrium. No doppler evidence for ASD. Mitral Valve There is no mitral valve stenosis. No mitral valve insufficiency. Tricuspid Valve There is no tricuspid stenosis. Unable to estimate RV systolic pressure due to inadequate jet, pulmonary artery pressure probably normal. Aortic Valve Trisinus/trileaflet aortic valve. There is no aortic stenosis. No aortic valve insufficiency. Pulmonic Valve There is no pulmonic valvular stenosis. No pulmonic valve insufficiency. Great Vessels Normal aortic root. Pericardium/Pleural No pericardial effusion. Medication 22 gauge I.V. with prn adaptor inserted into left arm. Diluted definity 6ml given slow IV push to enhance endocardial definition. MMode/2D Measurements & Calculations LVIDd: 4.7 cm IVSd: 0.93 cm Ao root diam: 3.7 cm LVIDs: 3.2 cm LVPWd: 1.0 cm RVDd: 3.9 cm FS: 32.6 % LAV(MOD-bp): 36.3 ml LVAd ap4: 35.0 cm2 SV(MOD-sp4): 73.6 ml LAV(MOD-bp) Indexed: 13.0 ml/m2 EDV(MOD-sp4): 120.6 ml LAV(MOD-sp2): 43.7 ml EDV(sp4-el): 126.1 ml LAV(MOD-sp4): 29.1 ml LVAs ap4: 20.8 cm2 ESV(MOD-sp4): 46.9 ml ESV(sp4-el): 48.9 ml EF(MOD-sp4): 61.1 % EF(sp4-el): 61.2 % SV(sp4-el): 77.2 ml LA A4 area: 13.3 cm2 RA A4 area: 13.5 cm2 Time Measurements MV dec time: 0.36 sec Doppler Measurements & Calculations MV E max jh: 53.9 cm/sec Med Peak E' Jh: 12.6 cm/sec Ao V2 max: 159.8 cm/sec MV A max jh: 64.6 cm/sec E/E' med: 4.3 Ao max P.2 mmHg MV E/A: 0.83 LV V1 max: 132.4 cm/sec PA V2 max: 107.9 cm/sec LV V1 max P.0 mmHg Interpretation Summary The estimated ejection fraction is 65 %. No evidence for diastolic dysfunction. The study was technically difficult. Contrast injection was performed. Ordering Physician: Arden De La Vega Referring Physician: ISAÍAS REYNOLDS Performed By: Carley Acosta RDCS
== END ==
PROVIDERS: Referring Provider Specialist; Visit Provider Specialist
DX: R06.00 Dyspnea, unspecified (principal); R07.9 Chest pain, unspecified
CPT/HCPCS: 93306; Q9957; A4216; C8929

== ENCOUNTER → 2020-12-07 12:17 | Outpatient (CLI) | payer MEDICAID, SELFPAY ==
[2020-08-22 11:18] VITALS: BMI 45.5
[2020-12-07 11:31] LABS: Absolute Lymphocyte Count 1.46 X10^3/uL (0.83-4.51); Basophil# 0.05 X10^3/uL; Basophil% 0.7 % (0-1); Eosinophil# 0.13 X10^3/uL; Eosinophils% 1.9 % (0-5); Hematocrit 45.6 % (40-54); Hemoglobin 14.9 g/dL (13.0-16.5); Lymphocyte # 1.46 X10^3/ul (0.83-4.51); Lymphocyte % 21.9 % (19-41); Mean Corp Hgb Conc 32.7 g/dL (32-36); Mean Corpuscular Hgb 28.3 pg (27.0-32.0); Mean Corpuscular Volume 86.5 fL (80-94); Mean Platelet Vol. 9.5 fl (6.2-12.0); Monocyte# 1.06 X10^3/uL; Monocyte% 15.9 % (0-10); NRBC Flagged by Analyzer 0 % (0-5); Neutrophil # 3.96 X10^3/uL (2.7-7.7); Neutrophil % 59.5 % (47-70); Platelet Count 265 K/mm3 (150-450); RBC Distribution Width SD 41.1 fl (35.1-43.9); Red Blood Count 5.27 M/mm3 (4.6-6.2); White Blood Count 6.7 K/mm3 (4.4-11.0)
[2020-12-07 11:50] LABS: Hemoglobin A1c 5.8 % (3.8-5.6)
--- NOTE | 2020-12-07 12:18 | US_ITS ---
STUDY: SUPERFICIAL ULTRASOUND - SCALP. REASON FOR EXAM: Male, 50 years old. LUMP ON TOP OF HEAD TECHNIQUE: A superficial ultrasound was performed with real-time and static granados-scale imaging. COMPARISON: None. FINDINGS: The palpable abnormality corresponds to a 2.5 cm x 2.6 cm x 0.6 cm hypoechoic density deep to the scalp overlying the crown of the head. US/Head/Neck Soft Tissue IMPRESSION: The palpable abnormality corresponds with 2.5 cm x 2.6 cm x 0.6 cm hypodensity in the scalp overlying the cranium and deep to the skin. This most likely represents a lipoma Electronically Signed: Neal Larry MD at 14:13 EDT , Service support ,
--- NOTE | 2020-12-07 12:35 | CT_ITS ---
STUDY: CT CHEST WITH CONTRAST REASON FOR EXAM: Male, 50 years old. ABNORMAL FINDING OF LUNG FIELD. Lung nodules seen on prior CT cardiac calcium scoring exam. RADIATION DOSAGE (If Supplied By Facility): CTDIvol = ( 26.20 ) mGy, DLP = ( 1130.59 ) mGycm TECHNIQUE: Transaxial imaging was performed following intravenous administration of IV 100mL Isovue-370. Multiplanar coronal and sagittal images were reformatted. Individualized dose optimization techniques were used for this CT. COMPARISON: Comparison is made with prior examination 05/04/2020. FINDINGS: Stable 2 mm nodule in the anterior aspect of the right middle lobe as seen on image #53. Stable 4.9 mm x 6 mm noncalcified nodule in the lateral aspect of the right lower lobe as seen on axial image #68. Stable 3 mm x 4 mm noncalcified nodule in the peripheral aspect of the left lower lobe as seen on axial image #83. There is no demonstrated pleural abnormality. Normal heart and pericardium. There are multiple small lymph nodes within the mediastinum, which are normal in size and morphology most compatible with reactive lymph hyperplasia. Normal hilar regions. Normal enhanced pulmonary arteries. Normal aorta arch and descending thoracic aorta. Normal osseous structures. Multiple small gallstones. CT/Chest WITH Contrast IMPRESSION: Stable examination. A 12 month follow-up examination is recommended. Electronically Signed: Neal Larry MD at 13:22 EDT , Service support ,
[2020-12-07 12:40] LABS: AST(SGOT) 35 U/L (15-37); Alanine Aminotransfer ALT/SGPT 44 U/L (16-61); Albumin, Serum 3.9 g/dL (3.2-5.0); Alkaline Phosphatase 97 U/L (45-117); Anion Gap 5 (5-15); BUN 19 mg/dL (7-18); BUN/Creat Ratio 19.9 RATIO (10-20); Calcium,Total 9.3 mg/dL (8.5-10.1); Chloride 103 mmol/L (98-107); Cholesterol 168 mg/dL (200); Creatinine, Serum 0.96 mg/dL (0.70-1.30); EST Glomerular Filtration Rate 89 mL/min (>60); Est Glom Filt Rate - Afr Amer 108 mL/min (>60); Glucose 114 mg/dL (74-106); High Density Lipoprotein 54 mg/dL; Potassium 4.2 mmol/L (3.5-5.1); Protein, Total 7.9 g/dL (6.4-8.2); Sodium Level 140 mmol/L (136-145); Triglycerides 94 mg/dL; Very Low Density Lipoprotein 19 mg/dL (5-40)
== END ==
PROVIDERS: PCP Nurse Practitioner Adult Health; Referring Provider Nurse Practitioner Adult Health; Visit Provider Nurse Practitioner Adult Health
DX: D21.0 Benign neoplasm of connective and other soft tissue of head, face and neck (principal); R91.8 Other nonspecific abnormal finding of lung field; I10 Essential (primary) hypertension
CPT/HCPCS: 36415; 71260; 76536; 80053; 80061; 83036; 85025; Q9967; A4216

== ENCOUNTER → 2021-01-04 09:10 | Outpatient (CLI) | payer MEDICAID, SELFPAY ==
[2020-08-22 11:18] VITALS: BMI 45.5
[2020-12-21 08:12] VITALS: BMI 45.5
--- NOTE | 2021-01-04 09:12 | RDU_ITS ---
Reason For Study: HTN Right Renal Artery Left Renal Artery Right renal artery ostium 108/30 Left renal artery ostium 117/32 RSV/EDV. PSV/EDV. Right renal artery proximal 153/42 Left renal artery proximal PSV/EDV PSV/EDV. 221/57 . Right renal artery mid 161/45 Left renal artery mid 161/45 PSV/EDV. PSV/EDV . Right renal artery distal 188/61 Left renal artery distal 169/45 PSV/EDV. PSV/EDV. Right Renal Parenchyma Left Renal Parenchyma Upper Pole Medula 33/15 PSV/EDV. Left upper pole medulla 42/17 Right upper pole medulla EDR 0.45 . PSV/EDV . Right upper pole medulla R.I. Left upper pole medulla EDR 0.40 . 0.56 . Left upper pole medulla R.I. 0.59 . Upper Noel Cortx 20/9 PSV/EDV. UP Cortex 36/15 PSV/EDV. Right upper pole cortex EDR 0.45 . Left upper pole cortex EDR 0.42 . Right upper pole cortex R.I. 0.56 . Left upper pole cortex R.I. 0.59 . Right lower Pole medulla 27/9 Left lower Pole medulla 37/15 PSV/EDV . PSV/EDV . Right lower pole medulla EDR 0.33 . Left lower pole medulla EDR 0.41 . Right lower pole medulla R.I. Left lower pole medulla R.I. 0.61 . 0.65 . Lower Pole Cortx 22/9 PSV/EDV. Lower Pole Cortex 17/8 PSV/EDV. Left lower pole cortex EDR 0.41 . Right lower pole cortex EDR 0.47 . Left lower pole cortex R.I. 0.59 . Right lower pole cortex R.I. 0.57 . Left Renal Hilar Right Renal Hilar LT Hilar avg 67/25 PSV/EDV . Right Hilar avg 63/22 PSV/EDV. Left hilar acceleration time 40 Right hilar acceleration time 40 m/sec. m/sec. Left Renal Dimensions Right Renal Dimensions Left kidney size 12.03 cm . Right kidney size 12.3 cm . Left cortical dimension 2.20 cm . Right cortical dimension 1.90 cm . Aorta Proximal abdominal aorta 1.81cm x 1.87 cm . Proximal abdominal aorta peak systolic velocity is 121 cm/sec . Distal abdominal aorta 1.87cm x 1.76 cm . Distal abdominal aorta peak systolic velocity is 86 cm/sec . Procedures Technically difficult study due to patient body habitus. VL/Renal Artery Duplex Ultrasound Interpretation Summary Maximal aortic dimensions distally at 1.87 x 1.76 cm in diameter. Slightly elev ated flow rate in the proximal abdominal aorta at 121 cm/s peak systolic flow which does invalidate t he renal artery to aortic ratio. Less than 60% stenosis proximal right renal artery. Velocities are slightly jerrod vated distally but this is difficult to correlate By velocity evaluation only there is greater than 60% stenosis of the proximal left renal artery however this may be an artificially elevated interpretation secondary to the in creased baseline aortic velocity Right renal length 12.3 cm, normal Left renal length 12.03 cm, normal This examination was felt to be technically difficult due to body habitus. Clin ical correlation would be appropriate Ordering Physician: Rochelle Davis Referring Physician: Rochelle Davis Performed By: Renee Esteves, MARY, RVT
== END ==
PROVIDERS: PCP Nurse Practitioner Adult Health; Referring Provider Nurse Practitioner Adult Health; Visit Provider Nurse Practitioner Adult Health
DX: I10 Essential (primary) hypertension (principal)
CPT/HCPCS: 93975

== ENCOUNTER → 2021-02-01 15:40 | Outpatient (CLI) | payer MEDICAID, SELFPAY ==
[2021-02-01 13:05] VITALS: BMI 45.5
--- NOTE | 2021-02-01 14:00 | CYST_PTH ---
PATIENT: ALEX BRISCOE II LOC: [facility] #:[id number] AGE/SX: 54/M ROOM: RE02/01/[address]: Dr. Hua Chavez MD : 1970 BED: DIS: SPEC #: [id number] RECD: 02/01/21 15:11 STATUS: JAYDON ARVIND #: [id number] SATURNINO: 02/01/21 14:[address]: Hua Chavez DEPT: SURGICAL PATHOLOGY RECD BY: Maria L Cochran ENTERED: 02/03/21 17:20 SP TYPE: Cyst OTHR DR: Ana [facility] Tissues: CYST Procedures: Surgery Specimen Level IV HEADER OPERATION: Excision of scalp cyst PRE-OP DIAGNOSIS: Scalp cyst TISSUE SUBMITTED: Scalp tissue MICROSCOPIC DIAGNOSIS Tissue of scalp, biopsy: Benign fragments of fibrofatty tissue. See comment. AM:nirmala 02/05/2021 COMMENT Occasional benign hair follicles are present. There is no evidence of malignancy. Clinical correlation is suggested. MICROSCOPIC DESCRIPTION Slides are reviewed. GROSS DESCRIPTION Received in fixative is one container labeled with the patient's name and designated scalp cyst. The specimen consists of multiple irregular fragments of light escobar soft tissue that in aggregate measure 2 x 2 x 0.3 cm. The specimen is totally submitted in one cassette. / SJ:nirmala 02/04/21 TC:5 CPT: 29617
== END ==
PROVIDERS: Referring Provider Surgery; Visit Provider Surgery
DX: L72.9 Follicular cyst of the skin and subcutaneous tissue, unspecified (principal)
CPT/HCPCS: 88304; 88305

== ENCOUNTER → 2021-03-01 08:00 | Outpatient (CLI) | payer MEDICAID, SELFPAY ==
[2021-02-15 09:36] VITALS: BMI 44.0
--- NOTE | 2021-03-01 08:01 | CT_ITS ---
STUDY: CTA OF THE Abdomen and Pelvis REASON FOR EXAM: Male, 50 years old. renal stenosis -- attention renals TECHNIQUE: Axial CT angiography multi-detector data acquisition was obtained from the lung bases to the pelvis following intravenous administration of IV 100mL Isovue-370. Axial images and MIP images were reconstructed from the axial data set. Post-processing of the angiographic images was performed, with multiplanar reformation and 3D reconstruction. Individualized dose optimization techniques were used for this CT. COMPARISON: None. FINDINGS: Abdomen/Pelvis: Visualized lung bases: Multiple 5 mm nodules in the lung bases, for example at axial image 33, 25 and 20. Liver: Unremarkable Gallbladder: Few small intraluminal stones seen. Spleen: Unremarkable Pancreas: Unremarkable Adrenal Glands: Unremarkable Kidneys: Unremarkable GI Tract: Unremarkable Lymphadenopathy: None Peritoneum: No ascites. Bones/Soft tissues: Mild scattered degenerative changes of the visualized spine. Vasculature: No significant atherosclerotic plaques. Abdominal aorta: No demonstrated narrowing. Celiac and superior mesenteric arteries: No demonstrated narrowing. Inferior mesenteric artery: No demonstrated narrowing. Right renal artery(arteries): No demonstrated narrowing. Left renal artery(arteries): No demonstrated narrowing. IMPRESSION: No evidence of renal artery stenosis. Multiple 5 mm pulmonary nodules in the lung bases. Recommend follow-up Chest CT in 6-12 months. Electronically Signed: Navi Schultz MD at 16:58 EDT Tel , Service support , STUDY: CTA OF THE Abdomen and Pelvis REASON FOR EXAM: Male, 50 years old. renal stenosis -- attention renals TECHNIQUE: Axial CT angiography multi-detector data acquisition was obtained from the lung bases to the pelvis following intravenous administration of IV 100mL Isovue-370. Axial images and MIP images were reconstructed from the axial data set. Post-processing of the angiographic images was performed, with multiplanar reformation and 3D reconstruction. Individualized dose optimization techniques were used for this CT. COMPARISON: None. FINDINGS: Abdomen/Pelvis: Visualized lung bases: Multiple 5 mm nodules in the lung bases, for example at axial image 33, 25 and 20. Liver: Unremarkable Gallbladder: Few small intraluminal stones seen. Spleen: Unremarkable Pancreas: Unremarkable Adrenal Glands: Unremarkable Kidneys: Unremarkable GI Tract: Unremarkable Lymphadenopathy: None Peritoneum: No ascites. Bones/Soft tissues: Mild scattered degenerative changes of the visualized spine. Vasculature: No significant atherosclerotic plaques. Abdominal aorta: No demonstrated narrowing. Celiac and superior mesenteric arteries: No demonstrated narrowing. Inferior mesenteric artery: No demonstrated narrowing. Right renal artery(arteries): No demonstrated narrowing. Left renal artery(arteries): No demonstrated narrowing. CT/CTA Abdomen W/WO Contrast
[2021-03-01 08:30] LABS: CREATININE FINGERSTICK 0.9 mg/dL (0.70-1.30); EGFR FINGERSTICK > 60.0000 mL/min (>60)
== END ==
PROVIDERS: Referring Provider Surgery; Visit Provider Surgery
DX: I70.1 Atherosclerosis of renal artery (principal); I10 Essential (primary) hypertension
CPT/HCPCS: 74175; Q9967

== ENCOUNTER → 2021-12-16 | Outpatient (CLI) | payer MEDICAID, SELFPAY ==
[2021-12-16 09:17] LABS: Absolute Lymphocyte Count 1.99 X10^3/uL (0.83-4.51); Absolute Neutrophil Count 4.9 X10^3/uL (2.0-7.7); Basophil# 0.05 X10^3/uL; Basophil% 0.6 % (0-1); Eosinophil# 0.17 X10^3/uL; Eosinophils% 2.1 % (0-5); Hematocrit 45.3 % (40-54); Hemoglobin 15.3 g/dL (13.0-16.5); Lymphocyte # 1.99 X10^3/ul (0.83-4.51); Lymphocyte % 24.5 % (19-41); Mean Corp Hgb Conc 33.8 g/dL (32-36); Mean Corpuscular Hgb 29.5 pg (27.0-32.0); Mean Corpuscular Volume 87.5 fL (80-94); Mean Platelet Vol. 10.6 fl (6.2-12.0); Monocyte# 0.95 X10^3/uL; Monocyte% 11.7 % (0-10); NRBC Flagged by Analyzer 0 % (0-5); Neutrophil # 4.93 X10^3/uL (2.7-7.7); Neutrophil % 60.9 % (47-70); Platelet Count 288 K/mm3 (150-450); RBC Distribution Width CV 12.1 % (11.6-14.6); RBC Distribution Width SD 38.8 fl (35.1-43.9); Red Blood Count 5.18 M/mm3 (4.6-6.2); White Blood Count 8.1 K/mm3 (4.4-11.0)
[2021-12-16 09:53] LABS: ALB/GLOB Ratio 0.9 RATIO (0.9-2.4); AST(SGOT) 27 U/L (15-37); Alanine Aminotransfer ALT/SGPT 57 U/L (16-61); Albumin, Serum 3.7 g/dL (3.2-5.0); Alkaline Phosphatase 101 U/L (45-117); Anion Gap 5 (5-15); BUN 11 mg/dL (7-18); BUN/Creat Ratio 11.9 RATIO (10-20); Calcium,Total 8.9 mg/dL (8.5-10.1); Chloride 103 mmol/L (98-107); Cholesterol 205 mg/dL (200); Creatinine, Serum 0.92 mg/dL (0.70-1.30); EST Glomerular Filtration Rate 92 mL/min (>60); Est Glom Filt Rate - Afr Amer 112 mL/min (>60); Glucose 171 mg/dL (74-106); High Density Lipoprotein 44 mg/dL; PSA,Total - Annual Screen 0.61 ng/mL (0.00-4.00); Potassium 3.7 mmol/L (3.5-5.1); Protein, Total 7.7 g/dL (6.4-8.2); Sodium Level 138 mmol/L (136-145); Triglycerides 305 mg/dL; Very Low Density Lipoprotein 61 mg/dL (5-40)
== END | disposition home or self-care (01) ==
LOC: LAB 08:34
DX: I10 Essential (primary) hypertension (principal); Z12.5 Encounter for screening for malignant neoplasm of prostate
CPT/HCPCS: 84153; 36415; 80053; 80061; 85025; G0103

== ENCOUNTER → 2022-07-16 | Outpatient (CLI) | payer MEDICAID, SELFPAY ==
[2022-07-16 11:31] LABS: ALB/GLOB Ratio 0.9 RATIO (0.9-2.4); AST(SGOT) 34 U/L (15-37); Alanine Aminotransfer ALT/SGPT 61 U/L (16-61); Albumin, Serum 3.6 g/dL (3.2-5.0); Alkaline Phosphatase 118 U/L (45-117); Anion Gap 6 (5-15); BUN 17 mg/dL (7-18); BUN/Creat Ratio 17.2 RATIO (10-20); Chloride 101 mmol/L (98-107); Creatinine, Serum 0.99 mg/dL (0.70-1.30); EST Glomerular Filtration Rate 85 mL/min (>60); Est Glom Filt Rate - Afr Amer 103 mL/min (>60); Globulin 4.2 g/dL (2.2-4.2); Glucose 285 mg/dL (74-106); Potassium 3.7 mmol/L (3.5-5.1); Protein, Total 7.8 g/dL (6.4-8.2); Sodium Level 136 mmol/L (136-145)
== END | disposition home or self-care (01) ==
LOC: LAB 10:10
PROVIDERS: Visit Provider Nurse Practitioner Family
DX: E11.9 Type 2 diabetes mellitus without complications (principal)
CPT/HCPCS: 36415; 80053

== ENCOUNTER → 2022-09-10 | Outpatient (CLI) | payer MEDICAID, SELFPAY ==
[2022-09-10 10:19] LABS: Hemoglobin 15.9 g/dL (13.0-16.5); Mean Corp Hgb Conc 33.1 g/dL (32-36); Mean Corpuscular Volume 87.6 fL (80-94); Mean Platelet Vol. 10.3 fl (6.2-12.0); Platelet Count 316 K/mm3 (150-450); RBC Distribution Width CV 12.8 % (11.6-14.6); RBC Distribution Width SD 40.9 fl (35.1-43.9); Red Blood Count 5.48 M/mm3 (4.6-6.2); White Blood Count 11.4 K/mm3 (4.4-11.0)
[2022-09-10 10:38] LABS: Microalbumin,Random Urine 18.4 mg/L (NO RANGE EST.)
[2022-09-10 10:47] LABS: AST(SGOT) 40 U/L (15-37); Alanine Aminotransfer ALT/SGPT 57 U/L (16-61); Albumin, Serum 3.9 g/dL (3.2-5.0); Alkaline Phosphatase 95 U/L (45-117); Anion Gap 7 (5-15); BUN 13 mg/dL (7-18); Calcium,Total 9.2 mg/dL (8.5-10.1); Chloride 103 mmol/L (98-107); Cholesterol 160 mg/dL (200); EST Glomerular Filtration Rate 84 mL/min (>60); Est Glom Filt Rate - Afr Amer 102 mL/min (>60); Globulin 4.1 g/dL (2.2-4.2); Glucose 133 mg/dL (74-106); High Density Lipoprotein 49 mg/dL; Potassium 3.9 mmol/L (3.5-5.1); Sodium Level 141 mmol/L (136-145); Triglycerides 130 mg/dL; Very Low Density Lipoprotein 26 mg/dL (5-40)
[2022-09-10 11:17] LABS: Hemoglobin A1c 6.3 % (3.8-5.6)
== END | disposition home or self-care (01) ==
LOC: LAB 09:05
DX: E11.9 Type 2 diabetes mellitus without complications (principal); E78.49 Other hyperlipidemia
CPT/HCPCS: 36415; 80053; 80061; 82043; 83036; 85027

== ENCOUNTER → 2023-03-11 | Outpatient (CLI) | payer MEDICAID, SELFPAY ==
[2023-03-11 11:29] LABS: Hematocrit 47.4 % (40-54); Hemoglobin 16.2 g/dL (13.0-16.5); Mean Corp Hgb Conc 34.2 g/dL (32-36); Mean Corpuscular Hgb 29.7 pg (27.0-32.0); Mean Platelet Vol. 10.4 fl (6.2-12.0); Platelet Count 305 K/mm3 (150-450); RBC Distribution Width CV 12.9 % (11.6-14.6); RBC Distribution Width SD 40.7 fl (35.1-43.9); Red Blood Count 5.45 M/mm3 (4.6-6.2); White Blood Count 8.5 K/mm3 (4.4-11.0)
[2023-03-11 11:53] LABS: ALB/GLOB Ratio 0.9 RATIO (0.9-2.4); AST(SGOT) 19 U/L (15-37); Alanine Aminotransfer ALT/SGPT 28 U/L (16-61); Albumin, Serum 3.8 g/dL (3.2-5.0); Alkaline Phosphatase 87 U/L (45-117); Anion Gap 3 (5-15); BUN 13 mg/dL (7-18); BUN/Creat Ratio 13.3 RATIO (10-20); Calcium,Total 9.2 mg/dL (8.5-10.1); Chloride 104 mmol/L (98-107); Cholesterol 139 mg/dL (200); Creatinine, Serum 0.98 mg/dL (0.70-1.30); EST Glomerular Filtration Rate 86 mL/min (>60); Est Glom Filt Rate - Afr Amer 104 mL/min (>60); Globulin 4.1 g/dL (2.2-4.2); Glucose 101 mg/dL (74-106); High Density Lipoprotein 46 mg/dL; Potassium 3.8 mmol/L (3.5-5.1); Protein, Total 7.9 g/dL (6.4-8.2); Sodium Level 138 mmol/L (136-145); Triglycerides 92 mg/dL; Very Low Density Lipoprotein 18 mg/dL (5-40)
[2023-03-11 12:02] LABS: Microalbumin,Random Urine 7.2 mg/L (NO RANGE EST.)
[2023-03-11 12:29] LABS: Hemoglobin A1c 5.3 % (3.8-5.6)
== END | disposition home or self-care (01) ==
LOC: LAB 10:39
DX: I10 Essential (primary) hypertension (principal); E11.9 Type 2 diabetes mellitus without complications; E78.49 Other hyperlipidemia
CPT/HCPCS: 36415; 80053; 80061; 82043; 83036; 85027

== ENCOUNTER 2024-06-24 11:40 | Emergency (ER) | payer OTHER, SELFPAY ==
[2024-06-24 11:40] VITALS: BP 171/97; PULSE 78; RESP 14; TEMP 36.8; O2SAT 98; BMI 37.5
--- NOTE | 2024-06-24 11:54 | EDS_ITS ---
HPI <COURTNEY Durant - Last Filed: 06/24/24 12:39> HPI - Fall History of Present Illness Chief Complaint: Fall Narrative Narrative: 53-year-old male works at [employer] and tripped over a rope that was connected to a carwash door falling onto his left lower back and hip area. No head injury or LOC. He was able to get up and ambulate but has pain in the left side. He also superficial abrasions to his left forearm. He is not on blood thinners. [facility] <COURTNEY Durant - Last Filed: 06/24/24 12:39> [facility] Medical History GERD (gastroesophageal reflux disease) Anxiety Dyspnea Headache Chest pain Essential hypertension SOB (shortness of breath) Atypical chest pain URI, acute Home Medications ?Medication ?Instructions ?Recorded ?Last Taken ?Type loratadine 10 mg tablet 10 mg PO DAILY 11/04/18 04/25/20 History albuterol sulfate 90 mcg/actuation 1 puff inhalation Q4H PRN Sob &/Or 04/13/20 Unknown History aerosol inhaler Wheezing montelukast 10 mg tablet 10 mg PO DAILY 04/13/20 04/25/20 History pantoprazole 20 mg tablet,delayed 20 mg PO DAILY 04/13/20 04/25/20 History release amlodipine 10 mg tablet 10 mg PO DAILY #90 tabs 08/21/21 Unknown Rx hydrochlorothiazide 25 mg tablet 25 mg PO DAILY #90 tabs 08/21/21 Unknown Rx metoprolol succinate 50 mg 50 mg PO DAILY #90 tabs 08/21/21 Unknown Rx tablet,extended release 24 hr losartan 100 mg tablet 100 mg PO DAILY #90 tabs 08/20/22 Unknown Rx budesonide-formoterol HFA 160 2 puff inhalation BID PRN 05/16/24 Unknown History mcg-4.5 mcg/actuation aerosol inhaler celecoxib 200 mg capsule (Celebrex) 200 mg PO DAILY #30 caps 05/16/24 Unknown Rx fluticasone propionate 50 1 spray intranasal DAILY PRN 05/16/24 Unknown History mcg/actuation nasal spray,suspension Allergy/AdvReac Type Severity Reaction Status Date / Time tramadol HCl (From [facility]) Allergy Itching Verified 06/24/24 11:40 carvedilol AdvReac Intermediate Very Verified 06/24/24 11:40 lightheaded and dizzy metformin AdvReac Upset Verified 06/24/24 11:40 Stomach Family History Father Cancer Leukemia Mother Hypertension Osteoarthritis Sister HIV (human immunodeficiency virus infection) Sister Murder Grandmother Diabetes Surgical History History of rhinoplasty History of tonsillectomy and adenoidectomy History of appendectomy Social History Smoking Status: Former smoker Smokeless tobacco user: chewing tobacco how long ago did patient quit smokin + years ago alcohol intake: former substance use type: former substance user Date of last use: 6 years ago diet: other caffeine: Yes Type: coffee Number of servings: 1 ROS <COURTNEY Durant - Last Filed: 06/24/24 12:39> ROS ED ROS Narrative Neuro: Negative for motor/sensory dysfunction. Skin: Positive for abrasions. Musc: Positive for left hip pain. Heme: Negative for easy bruising, bleeding. EXAM <COURTNEY Durant - Last Filed: 06/24/24 12:39> Physical Exam Narrative Exam Narrative: CONST: Patient sitting in no acute distress. EYES: Normal inspection. NECK: Normal inspection. RESP: No respiratory distress, CTAB. CVS: Regular rate and rhythm, no murmur, no gallop. Back: Normal inspection, no midline tenderness. Tender over left lumbar muscles. SKIN: Color normal, no rash, warm, dry, intact. EXTREMITIES: Normal appearance, full range of motion upper and lower extremities, 2+ radial and PT pulses. Slight pain with left hip movement, no shortening or rotation. NEURO: Alert and answering questions appropriately. PSYCH: Normal affect. Const Vital Signs: 06/24/24 11:40 06/24/24 12:28 Temperature 98.3 F Temperature Source Temporal Pulse Rate 78 Respiratory Rate 14 Respiratory Effort Normal Non-Labored Respiratory Depth Normal Respiratory Pattern Normal Blood Pressure 171/97 H Blood Pressure Mean 121 Pulse Ox 98 97 Oxygen Delivery Method Room Air Room Air <Dr. Alberto Lunsford DO - Last Filed: 06/24/24 12:37> Physical Exam Const Vital Signs: 06/24/24 11:40 06/24/24 12:28 Temperature 98.3 F Temperature Source Temporal Pulse Rate 78 Respiratory Rate 14 Respiratory Effort Normal Non-Labored Respiratory Depth Normal Respiratory Pattern Normal Blood Pressure 171/97 H Blood Pressure Mean 121 Pulse Ox 98 97 Oxygen Delivery Method Room Air Room Air [facility] <COURTNEY Durant - Last Filed: 06/24/24 12:39> [facility] Radiography Diagnostic Testing: Clinical Impression(s) from Imaging Studies Hip/Pelvis X-Ray 06/24/24 12:10 IMPRESSION: No acute fracture or dislocation or acute osseous abnormality of the pelvis and right hip. Electronically Signed: Tyler Lam MD at 12:27 EST , <Dr. Alberto Lunsford DO - Last Filed: 06/24/24 12:37> [facility] Narrative Medical decision making narrative: I have personally performed a face to face assessment of the patient and have reviewed the MINERVA Note. I performed a substantive portion of the visit including all aspects of the following. My martinez findings include: History is [patient presents with a fall and injury to his left hip/back. Patient was at work working in the [employer] when he closed a door and accidentally had a rope around his foot causing him to then fall. Patient fell onto the concrete in the rail and skinned up his left arm a little bit complains of pain in his left hip with walking. Denies numbness or tingling or weakness to extremities. He is not on blood thinners. He did not hit his head.] Exam is [HEENT-PERRLA, EOMI. Cranial nerves II through XII grossly intact. TMs clear. Mucous membranes moist. No adenopathy. Cardiovascular-regular rate and rhythm without murmur or ectopy Lungs-clear to auscultation, chest wall stable without crepitus or subcu emphysema Abdomen-normoactive bowel sounds, soft, nontender, no rebound or rigidity, no peritoneal signs. Back exam-no tenderness over the thoracic or lumbar spine in the midline. He does have some tenderness palpation over the left lower lumbar paraspinal musculature. There is no ecchymosis or bruising noted. No CVA tenderness on exam. Negative straight leg raises. Extremities-intact ?4. Patient has tenderness palpation over the left hip and left iliac crest. Neurovascularly intact. No shortening or rotational deformity noted. X-rays of the left hip and pelvis obtained were unremarkable. Patient will be discharged to home. Advised to follow-up with corporate care within next 3 to 5 days. Medical Decison Making [patient presents with a fall and injury to left low back and left hip. X-rays negative. Suspect likely contusion.] Other additions or changes: [None] Radiography Diagnostic Testing: Clinical Impression(s) from Imaging Studies Hip/Pelvis X-Ray 06/24/24 12:10 IMPRESSION: No acute fracture or dislocation or acute osseous abnormality of the pelvis and right hip. Electronically Signed: Tyler Lam MD at 12:27 EST Reading Location ID and State: [address] [place] [address] , Service support , 2 view x-rays of the left hip and pelvis obtained interpreted by myself as no evidence of fracture or dislocation. Radiology in agreement. Discharge Plan Triage Chief Complaint: Fall ED Midlevel Provider: Norma Davila ED Provider: Alberto Lunsford Dx/Rx/DC Orders Clinical Impression: Low back pain, Contusion of hip, left Instructions: Bruises (Contusions) Prescriptions: No Action loratadine 10 mg tablet 10 mg PO DAILY fluticasone propionate 50 mcg/actuation spray,suspension 1 spray INTRANASAL DAILY PRN montelukast 10 mg tablet 10 mg PO DAILY albuterol sulfate 90 mcg/actuation HFA aerosol inhaler 1 puff INHALATION Q4H PRN (Reason: Sob &/Or Wheezing) Patient Comments: USE EVERY FOUR HOURS NEEDED pantoprazole 20 mg tablet,delayed release (DR/EC) 20 mg PO DAILY amlodipine 10 mg tablet 10 mg PO DAILY Qty: 90 3RF hydrochlorothiazide 25 mg tablet 25 mg PO DAILY Qty: 90 3RF metoprolol succinate 50 mg tablet extended release 24 hr 50 mg PO DAILY Qty: 90 3RF budesonide-formoterol 160-4.5 mcg/actuation HFA aerosol inhaler 2 puff inhalation BID PRN Patient Comments: inhale 2 puffs by mouth twice a day RINSE MOUTH AFTER USE celecoxib [Celebrex] 200 mg capsule 200 mg PO DAILY Qty: 30 1RF Rx Instructions: Do not take in conjunction with other NSAID. Tylenol is okay losartan 100 mg tablet 100 mg PO DAILY Qty: 90 3RF Primary Care Provider: Reina Cantor Referrals: Reina Cantor, [facility] [Primary Care Provider] - Activity Restrictions/Additional Instructions: Ice and take Tylenol or ibuprofen as needed for pain. Print Language: Danish Disposition Disposition: Home, Self Care
--- NOTE | 2024-06-24 12:10 | RAD_ITS ---
EXAM: XR LEFT HIP WITH PELVIS WHEN PERFORMED, 2 OR 3 VIEWS CLINICAL INDICATION: pain TECHNIQUE: Two or three views of the left hip with pelvis when performed. COMPARISON: AP pelvis with right hip 10/31/2015. FINDINGS: BONES/JOINTS: Unremarkable. No displaced fracture. No destructive or sclerotic lesions. Note that overlapping bowel shadows may however obscure fine detail. Sacroiliac joint is unremarkable. No widening of the pubic symphysis. The articular structures are unremarkable. SOFT TISSUES: Unremarkable. No soft tissue swelling or gas. RAD/HIP, UNI W/ Pelvis 2-3 Views IMPRESSION: No acute fracture or dislocation or acute osseous abnormality of the pelvis and right hip. Electronically Signed: Tyler Lam MD at 12:27 EST ,
[2024-06-24 12:28] VITALS: O2SAT 97
[2024-06-24 12:47] VITALS: BP 137/68; PULSE 74; RESP 16; TEMP 36.4; O2SAT 98
== END 2024-06-24 12:58 | disposition home or self-care (01) ==
PROVIDERS: Emergency Provider Emergency Medicine; PCP Nurse Practitioner Family; Visit Provider Emergency Medicine
DX: S70.02XA Contusion of left hip, initial encounter (principal); S50.812A Abrasion of left forearm, initial encounter; W18.09XA Striking against other object with subsequent fall, initial encounter; Y99.0 Civilian activity done for income or pay; I10 Essential (primary) hypertension; K21.9 Gastro-esophageal reflux disease without esophagitis; F41.9 Anxiety disorder, unspecified; Z90.49 Acquired absence of other specified parts of digestive tract; Z79.899 Other long term (current) drug therapy; Z87.891 Personal history of nicotine dependence
CPT/HCPCS: 73502; 99283

== ENCOUNTER → 2024-10-04 | Outpatient (CLI) | payer OTHER, SELFPAY ==
[2024-10-04 16:58] LABS: Absolute Lymphocyte Count 2.38 X10^3/uL (0.83-4.51); Absolute Neutrophil Count 4.2 X10^3/uL (2.0-7.7); Basophil# 0.08 X10^3/uL; Basophil% 1.1 % (0-1); Eosinophil# 0.26 X10^3/uL; Eosinophils% 3.4 % (0-5); Hematocrit 44.3 % (40-54); Lymphocyte # 2.38 X10^3/ul (0.83-4.51); Lymphocyte % 31.4 % (19-41); Mean Corp Hgb Conc 33.9 g/dL (32-36); Mean Corpuscular Hgb 29.3 pg (27.0-32.0); Mean Corpuscular Volume 86.5 fL (80-94); Monocyte# 0.62 X10^3/uL; Monocyte% 8.2 % (0-10); NRBC Flagged by Analyzer 0 % (0-5); Neutrophil # 4.22 X10^3/uL (2.7-7.7); Neutrophil % 55.8 % (47-70); Platelet Count 263 K/mm3 (150-450); RBC Distribution Width CV 12.8 % (11.6-14.6); RBC Distribution Width SD 40.2 fl (35.1-43.9); Red Blood Count 5.12 M/mm3 (4.6-6.2); White Blood Count 7.6 K/mm3 (4.4-11.0)
[2024-10-04 18:23] LABS: ALB/GLOB Ratio 1.5 RATIO (0.9-2.4); AST(SGOT) 22 U/L (<=37); Alanine Aminotransfer ALT/SGPT 18 U/L (<=46); Albumin, Serum 4.5 g/dL (3.5-5.0); Alkaline Phosphatase 91 U/L (40-129); Anion Gap 12 (5-15); BUN 18 mg/dL (4-19); BUN/Creat Ratio 17.5 RATIO (10-20); Calcium,Total 9.8 mg/dL (7.6-11.0); Carbon Dioxide 25.3 mmol/L (21.0-32.0); Chloride 102 mmol/L (98-108); Cholesterol 156 mg/dL (<=200); EST Glomerular Filtration Rate 90 (>60); Glucose 112 mg/dL (70-99); High Density Lipoprotein 55 mg/dL; Low Density Lipoprotein Calc. 79 mg/dL; Potassium 3.9 mmol/L (3.3-5.1); Protein, Total 7.5 g/dL (5.9-8.4); Sodium Level 139 mmol/L (133-145); Triglycerides 109 mg/dL; Very Low Density Lipoprotein 22 mg/dL (5-40); cholesterol:hdl ratio screen 2.85
[2024-10-04 19:39] LABS: Microalbumin,Random Urine < 12.0 mg/L (NO RANGE EST.)
== END | disposition home or self-care (01) ==
LOC: VSLAB 16:06
PROVIDERS: PCP Nurse Practitioner Family; Visit Provider Nurse Practitioner Family
DX: E78.49 Other hyperlipidemia (principal); E11.9 Type 2 diabetes mellitus without complications; I10 Essential (primary) hypertension
CPT/HCPCS: 36415; 80053; 80061; 82043; 84443; 85025

== ENCOUNTER → 2024-11-22 | Outpatient (CLI) | payer OTHER, SELFPAY | END | disposition home or self-care (01) | LOC: LABSPEC 16:16 | PROVIDERS: PCP Nurse Practitioner Family; Visit Provider Nurse Practitioner Family | DX: R35.0 Frequency of micturition (principal) | CPT/HCPCS: 87086 ==

== ENCOUNTER → 2025-07-11 | Outpatient (CLI) | payer OTHER, SELFPAY ==
[2025-07-11 16:49] LABS: Hematocrit 43.7 % (40-54); Hemoglobin 14.9 g/dL (13.0-16.5); Immature Granulocytes Count 0.010 X10^3/uL (0.0-0.0); Mean Corp Hgb Conc 34.1 g/dL (32-36); Mean Corpuscular Volume 86.9 fL (80-94); Mean Platelet Vol. 10.5 fl (6.2-12.0); NRBC Flagged by Analyzer 0 % (0-5); Platelet Count 250 K/mm3 (150-450); RBC Distribution Width CV 12.9 % (11.6-14.6); RBC Distribution Width SD 40.9 fl (35.1-43.9); Red Blood Count 5.03 M/mm3 (4.6-6.2); White Blood Count 6.6 K/mm3 (4.4-11.0)
[2025-07-11 17:45] LABS: AST(SGOT) 22 U/L (<=37); Alanine Aminotransfer ALT/SGPT 22 U/L (<=46); Albumin, Serum 4.5 g/dL (3.5-5.0); Alkaline Phosphatase 85 U/L (40-129); Anion Gap 10 (5-15); BUN 12 mg/dL (4-19); BUN/Creat Ratio 12.4 RATIO (10-20); Calcium,Total 9.6 mg/dL (7.6-11.0); Carbon Dioxide 27.0 mmol/L (21.0-32.0); Chloride 104 mmol/L (98-108); Globulin 2.9 g/dL (2.2-4.2); Glucose 102 mg/dL (70-99); PSA,Total- Diagnostic 0.39 ng/mL (0.00-4.00); Potassium 3.9 mmol/L (3.3-5.1); Vitamin B12 604 pg/mL (180-914); Vitamin D,25 Hydroxy 25.4 ng/mL (30-100)
== END | disposition home or self-care (01) ==
LOC: VSLAB 13:35
PROVIDERS: PCP Nurse Practitioner Family; Referring Provider Nurse Practitioner Family; Visit Provider Nurse Practitioner Family
DX: E11.9 Type 2 diabetes mellitus without complications (principal); E55.9 Vitamin D deficiency, unspecified; Z12.5 Encounter for screening for malignant neoplasm of prostate; R53.83 Other fatigue
CPT/HCPCS: 36415; 80053; 82306; 82607; 83036; 84153; 84439; 84443; 85025